=== PATIENT | female | born 1945 | race Caucasian/White ===

== ENCOUNTER 2017-09-01 11:45 | Emergency (ER) | payer OTHER ==
[2017-09-01 12:00] VITALS: BP 103/56
--- NOTE | 2017-09-01 12:04 | UC ---
Lower Extremity/Ankle HPI - HPI Summary HPI Summary: 71 yo WF presents with right ankle pain since last night. She tells me that she was letting her dog out and he pulled on the leash - she twisted her ankle and fell. Did not hit her head. Sustained an inversion right ankle injury. She did RICE therapy last night. Taking ibuprofen for pain with good relief. Still having pain and difficulty ambulating this morning. Denies numbness or tingling. - History of Current Complaint Stated Complaint: ANKLE INJURY Time Seen by Provider: 09/01/17 12:00 Hx Obtained From: Patient Onset/Duration: Sudden Onset Severity Initially: Severe Severity Currently: Moderate Pain Intensity: 4 Pain Scale Used: 0-10 Numeric Aggravating Factor(s): Standing, Ambulation Alleviating Factor(s): Elevation Able to Bear Weight: Yes - Allergies/Home Medications Allergies/Adverse Reactions: Allergies Allergy/AdvReac Type Severity Reaction Status Date / Time No Known Allergies Allergy Verified 09/01/17 12:09 Home Medications: Home Medications Bupropion XL* [Wellbutrin XL *] 450 mg PO DAILY 09/01/17 [History Confirmed ] Citalopram TAB* [CeleXA TAB*] 30 mg PO BEDTIME 09/01/17 [History Confirmed 09/01] Hydrocortisone 2.5% CREAM(NF) 1 applic TOPICAL BID PRN 09/01/17 [History Confirmed 09/01/17] Ketoconazole 2 % CREAM (NF) [Nizoral 2% CREAM (NF)] 1 applic 09/01/17 [History] Losartan TAB* [Cozaar TAB*] 25 mg PO DAILY 09/01/17 [History Confirmed 09/01/17] NIFEdipine [Nifedipine ER] 90 mg PO DAILY 09/01/17 [History Confirmed 09/01/17] Omeprazole CAP* [Prilosec CAP* 20 MG] 20 mg PO DAILY 09/01/17 [History Confirmed 09/01/17] Simvastatin [Zocor] 40 mg PO DAILY 09/01/17 [History Confirmed 09/01/17] PMH/Surg Hx/FS Hx/Imm Hx Endocrine History: Dyslipidemia Cardiovascular History: Hypertension Psychological History: Anxiety, Depression - Family History Known Family History: Positive: Hypertension - Social History Occupation: Retired Lives: With Family Alcohol Use: Occasionally Substance Use Type: None Smoking Status (MU): Former Smoker Type: Cigarettes Review of Systems Constitutional: Negative Skin: Negative Respiratory: Negative Cardiovascular: Negative Gastrointestinal: Negative Neurovascular: Negative Musculoskeletal: Decreased ROM - Right ankle, Other: - Right ankle pain Neurological: Negative Psychological: Negative All Other Systems Reviewed And Are Negative: Yes Physical Exam - Summary Physical Exam Summary: GENERAL: NAD. WDWN. No pain distress. SKIN: No rashes, sores, ulcers, masses, lesions. NECK: Supple. Nontender. No lymphadenopathy. CHEST: CTAB. No r/r/w. No accessory muscle use. Breathing comfortably and in no distress. CV: Pulses intact PT and DP. Brisk cap refill. MSK: Right ankle TTP about lateral malleolus. Moderate edema on lateral malleolus. Increased laxity during inversion. No 5th MT pain. Negative Wake test. NEURO: Alert. Sensations intact and symmetric B/L LEs PSYCH: Age appropriate behavior. Triage Information Reviewed: Yes Procedures - Splinting Location: Right ankle stirrup Hand-Made Type: orthoglass Pre-Proc Neuro Vasc Exam: normal Post-Proc Neuro Vasc Exam: normal Lower Extremity Course/Dx - Course Course Of Treatment: XR: IMPRESSION: NONDISPLACED DISTAL RIGHT FIBULAR FRACTURE. Placed in right ankle splint. Ibuprofen prn. RICE. F/u with Ortho this week - Differential Dx/Diagnosis Provider Diagnoses: Closed NONDISPLACED DISTAL RIGHT FIBULAR FRACTURE. Discharge - Discharge Plan Condition: Stable Disposition: HOME Patient Education Materials: Ankle Fracture (DC) Referrals: Claudia Casanova NP [Primary Care Provider] - Aron Fuentes MD [Medical Doctor] - As Soon As Possible Additional Instructions: If you develop a fever, shortness of breath, chest pain, new or worsening symptoms - please call your PCP or go to the ED. 1) Rest, Ice, and Elevate your ankle as much as possible over the next 24-48 hours 2) Please keep your splint clean, dry, and intact until your appointment with Orthopedics 3) Please call Orthopedics at the number below to schedule a follow up appointment for sometime early this week 4) May take 600-800mg ibuprofen every 6-8hours as needed for pain. Use your walker as needed.
--- NOTE | 2017-09-01 12:53 | RAD ---
INDICATION: Lateral ankle pain after injury COMPARISON: None. TECHNIQUE: 3 views of the right ankle were obtained. FINDINGS: There is a horizontally oriented nondisplaced fracture through the right fibular malleolus remaining visualized bones are intact and appropriately aligned. Medullary screws are seen overlying the first and second distal metatarsals. There is no definite asymmetric widening of the ankle mortise. IMPRESSION: NONDISPLACED DISTAL RIGHT FIBULAR FRACTURE.
== END 2017-09-01 13:00 | disposition home or self-care (01) ==
LOC: UCEAST 11:45
DX: S82.831A Other fracture of upper and lower end of right fibula, initial encounter for closed fracture (principal); X50.1XXA Overexertion from prolonged static or awkward postures, initial encounter; Y93.K9 Activity, other involving animal care; Y92.9 Unspecified place or not applicable; Z87.891 Personal history of nicotine dependence
CPT/HCPCS: 99213; G0463

== ENCOUNTER 2019-06-23 23:12 | Emergency (ER) | payer MEDICARE ==
--- OUTSIDE RECORDS SUMMARY | 2019-06-23 23:29 | XMS REPORT | Continuity of Care Document ---
:1945 External Reference #:[id number] Author Name Claudia Casanova N.P. (transmitted by agent of provider Abi Villalba) Address [address], [place] [address] Care Team Providers Name Role Phone Brigid Velez MD - Internal Care Team Information Sap Developer [phone] Medicine Claudia Casanova NP - Family Care Team Information Sap Developer [phone] Problems Active Problems Provider Date Depressive disorder Claudia Casanova N.Jeremi Onset: 01/02/2011 Irritable bowel syndrome Claudia Casanova N.Jeremi Onset: 01/02/2011 Benign essential hypertension Claudia Casanova N.Jeremi Onset: 03/20/2016 Closed fracture of lateral malleolus Aron Fuentes MD Onset: 09/02/2017 Sprain of ankle Aron Fuentes MD Onset: 09/02/2017 Social History Type Date Description Comments Sex Unknown ETOH Use Currently consumes 7 - 10 per week alcohol Tobacco Use Start: Unknown End: Patient is a former Smoked for a few Unknown smoker years in the s. Smoking Status Reviewed: 05/27/19 Patient is a former Smoked for a few smoker years in the 1960s. Exercise Exercises sporadically Walks her dog daily Type/Frequency Allergies, Adverse Reactions, Alerts Description No Known Drug Allergies Medications Active Medications SIG Qnty Indications Ordering Date Provider Pulmicort Flexhaler 2 puffs twice 1units J20.9 Claudia Casanova, 05/27/2019 daily N.P. 180mcg/Act Aerosol Amoxicillin/Clavulana one tablet by 20tabs J20.9 Claudia Casanova, 05/27/2019 te Potassium mouth twice daily N.P. 875-125mg for 10 days Tablets Benzonatate one by mouth 30caps J20.9 [facility], 05/27/2019 200mg three times daily N.P. Capsules as needed for cough Gabapentin 1 capsule at 21caps M54.5 [facility], 05/27/2019 100mg bedtime for 7 N.P. Capsules days, then 2 capsules at bedtime for 1 week Metaxalone take 1 tablet 3 30tabs M54.5 [facility], 03/17/2019 800mg times a day as N.P. Tablets needed Tramadol HCL 1 tablet three 60tabs M54.5 [facility], 03/13/2019 50mg times daily as N.P. Tablets needed Losartan Potassium 1 by mouth every 90tabs I10 [facility], 09/05/2018 50mg day N.P. Tablets Nifedipine ER 1 by mouth every 30tabs [facility], 03/07/2018 90mg day N.P. Tablets ER 24HR Omeprazole 1 by mouth every 90caps [facility], 12/08/[address] Simvastatin 1 by mouth every 90tabs [facility], 07/26/2014 40mg night at bedtime N.P. Tablets Calcium 1200 1 by mouth every 90units [facility], 12/25/2013 day N.P. [id number] Chewtabs Ibuprofen prn Alana Goodrich, 01/02/2011 200mg M.D., FACP Capsules Wellbutrin XL take 2 tablet by 90tabs Unknown 150mg mouth every day Tablets ER 24HR Citalopram 1 1/2 by mouth 135tabs Unknown Hydrobromide every day 20mg Tablets Mucinex DM 1 by mouth twice Unknown 30-600mg a day Tablets ER 12HR History Medications Cyclobenzaprine HCL 1 by mouth at 30tabs M54.5 [facility], 03/13/2019 - 5mg bedtime as N.P. 03/17/2019 Tablets needed for back pain Immunizations CPT Code Status Date Vaccine Reaction Lot # [id number] Given 03/17/2019 Fluzone High Dose 05204 Given 03/12/2018 Fluzone High Dose 73817 Given 10/26/2017 Zoster (Shingles) Vaccine (HZV), Recombinant, Subunit, Adjuvanted 85971 Given 09/04/2017 Tetanus And Diptheria (Td) No immediate [id number] For Adult Use Preservative reaction...jh Free 79425 Given 08/22/2017 Zoster (Shingles) Vaccine (HZV), Recombinant, Subunit, Adjuvanted 79131 Given 04/09/2017 Influenza Virus Vaccine, Quadrivalent, Split, Preservative Free 32112 Given 04/09/2016 Pneumococcal Conjugate Vaccine 13 Valent For Intramuscular Use Q2039 Given 03/21/2016 Flu Vaccine NOS 27665 Given 03/31/2015 Fluzone High Dose Q2037 Given 04/01/2014 Fluvirin Im 3Yrs And Older 20708 Given 10/26/2013 Pneumonia Vaccine [id number] Q2037 Given 04/02/2013 Fluvirin Im 3Yrs And Older Q2038 Given 03/22/2012 Fluzone Vaccine 49464 Given 01/02/2011 Zoster (Zostavax) [id number] 04726 Given 01/26/2008 Tdap - Tetanus/Diptheria/Acellular Pertussis Vital Signs Date Vital Result Comment 05/27/2019 10:33am Height 61 inches 5'1" Weight 176.00 lb pt refused weight, stated this is her correct lindsey Heart Rate 77 /min BP Systolic Sitting 104 mmHg BP Diastolic Sitting 70 mmHg Body Temperature 97.6 F O2 % BldC Oximetry 93 % BMI (Body Mass Index) 33.3 kg/m2 04/28/2019 2:17pm Weight 176.00 lb BP Systolic Sitting 109 mmHg BP Diastolic Sitting 58 mmHg Respiratory Rate 16 /min Body Temperature 98.2 F Pain Level 5 O2 % BldC Oximetry 96 % Results Description No Information Available Procedures Date Code Description Status 03/31/2018 85931948 Mammogram Completed 12/04/2017 [id number] Bone Mineral Density Test Completed 03/29/2017 [id number] Mammogram Completed 05/02/2016 [id number] Diabetic Retinal Eye Exam Completed 02/23/2016 [id number] Mammogram Completed 03/02/2015 [id number] Diabetic Retinal Eye Exam Completed 09/08/2014 [id number] Mammogram Completed 03/31/2014 [id number] Diabetic Retinal Eye Exam Completed 01/14/2014 [id number] Colonoscopy Completed 11/02/2013 [id number] Bone Mineral Density Test Completed 09/03/2013 [id number] Mammogram Completed 01/08/2011 [id number] Mammogram Completed 03/31/2008 [id number] Diabetic Foot Exam Completed 10/23/2007 [id number] Mammogram Completed 06/17/2003 [id number] Bone Mineral Density Test Completed 06/07/2003 [id number] Colonoscopy Completed Medical Devices Description No Information Available Encounters Type Date Location Provider Dx Diagnosis Office Visit 04/28/2019 [facility] Internal Alana Goodrich, S67.195A [facility], FACP left ring finger, initial encounter Office Visit 03/13/2019 [facility] Internal Claudia Casanova, I10 Essential (primary ) 2:00[facility] hypertension M54.5 Low back pain R05 Cough Z12.31 Encntr screen mammogram for malignant neoplasm of breast Assessments Date Code Description Provider 05/27/2019 J20.9 Acute bronchitis, unspecified Claudia Varn, N.P. 05/27/2019 M54.5 Low back pain Claudia Varn, N.P. 04/28/2019 S67.195A Crushing injury of left ring finger, Alana Goodrich M.D., FACP initial encounter 03/13/2019 I10 Essential (primary) hypertension Claudia Varn, N.P. 03/13/2019 M54.5 Low back pain Claudia Varn, N.P. 03/13/2019 R05 Cough Claudia Varn, N.P. 03/13/2019 Z12.31 Encounter for screening mammogram for Claudia Varn, N.P. malignant neoplasm of breast Plan of Treatment Future Appointment(s):09/07/2019 1:00 pm - Claudia Varn, N.P. at [facility] - Claudia Varn, N.P.J20.9 Acute bronchitis, unspecifiedNew Medication:Pulmicort Flexhaler 180 mcg/Act - 2 puffs twice dailyAmoxicillin/Clavulanate Potassium 875-125 mg - one tablet by mouth twice daily for 10 daysBenzonatate 200 mg - one by mouth three times daily as needed for coughComments:For your bronchitis: I have sent in a prescription for an Augmentin to the pharmacy You are to take 1 tablet every 12 hours until they are gone. Make sure to take this with a little food. I prescribed Benzonatate 200 mg. You may take this every 8 hours as needed for cough.I refilled you prescription for Pulmicort inhaler. Take 2 inhalations, twice daily until you are feeling better.M54.5 Low back painNew Medication:Gabapentin 100 mg - 1 capsule at bedtime for 7 days, then 2 capsules at bedtime for 1 weekComments: For your back pain I want you to start taking Gabapentin. Start with 100 mg at night for a week, boost it to 200 mg for a week, and then boost it to 300 mg. This will be your maintenance dose.This should help your pain and your insomnia. Functional Status Description No Information Available Mental Status Description No Information Available Referrals Refer to Reason for Referral Status Appt Date Pain Clinic Patient with back pain, referred for pain management. Sent Thank you for seeing this patient. [address] [place], [place] [address] [phone]
--- OUTSIDE RECORDS SUMMARY | 2019-06-23 23:29 | XMS REPORT | Continuity of Care Document ---
:1945 External Reference #:[id number] Author Name Alana Goodrich M.D., FACP (transmitted by agent of provider Jacquie Louis) Address [address] [place] [address] Care Team Providers Name Role Phone Brigid Velez MD - Internal Care Team Information Supervisor [employer] Making Machine [phone] Medicine Claudia Casanova NP - Family Care Team Information Supervisor [employer] Making Machine [phone] Problems Active Problems Provider Date Depressive disorder Claudia Casanova N.PBrendan Onset: 01/02/2011 Irritable bowel syndrome Claudia Casanova N.P. Onset: 01/02/2011 Benign essential hypertension Claudia Casanova N.PBrendan Onset: 03/20/2016 Closed fracture of lateral malleolus Aron Fuentes MD Onset: 09/02/2017 Sprain of ankle Aron Fuentes MD Onset: 09/02/2017 Social History Type Date Description Comments Sex Unknown ETOH Use Currently consumes 7 - 10 per week alcohol Tobacco Use Start: Unknown End: Patient is a former Smoked for a few Unknown smoker years in the s. Smoking Status Reviewed: 04/28/19 Patient is a former Smoked for a few smoker years in the 1960s. Exercise Exercises sporadically Walks her dog daily Type/Frequency Allergies, Adverse Reactions, Alerts Description No Known Drug Allergies Medications Active Medications SIG Qnty Indications Ordering Provider Date Metaxalone take 1 tablet 3 30tabs M54.5 Claudia Varn, 03/17/2019 800mg times a day as N.P. Tablets needed Tramadol HCL 1 tablet three 60tabs M54.5 Claudia Varn, 03/13/2019 50mg times daily as N.P. Tablets needed Losartan Potassium 1 by mouth every 90tabs I10 Claudia Casanova, 09/05/2018 50mg day N.P. Tablets Nifedipine ER 1 by mouth every 30tabs Claudia Casanova, 03/07/2018 90mg day N.P. Tablets ER 24HR Omeprazole 1 by mouth every 90caps Claudia Casanova, 12/08/2015 [address] C[address]ules [address] Simvastatin 1 by mouth every 90tabs Claudia Casanova, 07/26/2014 40mg night at bedtime N.P. Tablets Calcium 1200 1 by mouth every 90units Claudia Casanova, 12/25/2013 day N.P. [id number] Chewtabs Ibuprofen prn Alana Joleen, 01/02/2011 200mg M.D., FACP Capsules Wellbutrin XL take 2 tablet by 90tabs Unknown 150mg mouth every day Tablets ER 24HR Citalopram 1 1/2 by mouth 135tabs Unknown Hydrobromide every day 20mg Tablets Mucinex DM 1 by mouth twice Unknown 30-600mg a day Tablets ER 12HR History Medications Cyclobenzaprine HCL 1 by mouth at 30tabs M54.5 Claudia Varn, 03/13/2019 - 5mg bedtime as N.P. 03/17/2019 Tablets needed for back pain Immunizations CPT Code Status Date Vaccine Reaction Lot # [id number] Given 03/17/2019 Fluzone High Dose 84008 Given 03/12/2018 Fluzone High Dose 79254 Given 10/26/2017 Zoster (Shingles) Vaccine (HZV), Recombinant, Subunit, Adjuvanted 89874 Given 09/04/2017 Tetanus And Diptheria (Td) No immediate [id number] For Adult Use Preservative reaction...jh Free 75452 Given 08/22/2017 Zoster (Shingles) Vaccine (HZV), Recombinant, Subunit, Adjuvanted 05618 Given 04/09/2017 Influenza Virus Vaccine, Quadrivalent, Split, Preservative Free 27273 Given 04/09/2016 Pneumococcal Conjugate Vaccine 13 Valent For Intramuscular Use Q2039 Given 03/21/2016 Flu Vaccine NOS 46622 Given 03/31/2015 Fluzone High Dose Q2037 Given 04/01/2014 Fluvirin Im 3Yrs And Older 19785 Given 10/26/2013 Pneumonia Vaccine [id number] Q2037 Given 04/02/2013 Fluvirin Im 3Yrs And Older Q2038 Given 03/22/2012 Fluzone Vaccine 05893 Given 01/02/2011 Zoster (Zostavax) [id number] 36070 Given 01/26/2008 Tdap - Tetanus/Diptheria/Acellular Pertussis Vital Signs Date Vital Result Comment 04/28/2019 2:17pm Weight 176.00 lb BP Systolic Sitting 109 mmHg BP Diastolic Sitting 58 mmHg Respiratory Rate 16 /min Body Temperature 98.2 F Pain Level 5 O2 % BldC Oximetry 96 % 03/13/2019 2:14pm Height 61 inches 5'1" Weight 176.00 lb Heart Rate 68 /min BP Systolic Sitting 115 mmHg BP Diastolic Sitting 70 mmHg BMI (Body Mass Index) 33.3 kg/m2 Results Description No Information Available Procedures Date Code Description Status 03/31/2018 [id number] Mammogram Completed 12/04/2017 [id number] Bone Mineral Density Test Completed 03/29/2017 [id number] Mammogram Completed 05/02/2016 [id number] Diabetic Retinal Eye Exam Completed 02/23/2016 [id number] Mammogram Completed 03/02/2015 [id number] Diabetic Retinal Eye Exam Completed 09/08/2014 [id number] Mammogram Completed 03/31/2014 [id number] Diabetic Retinal Eye Exam Completed 01/14/2014 [id number] Colonoscopy Completed 11/02/2013 [id number] Bone Mineral Density Test Completed 09/03/2013 [id number] Mammogram Completed 01/08/2011 [id number] Mammogram Completed 03/31/2008 [id number] Diabetic Foot Exam Completed 10/23/2007 [id number] Mammogram Completed 06/17/2003 [id number] Bone Mineral Density Test Completed 06/07/2003 [id number] Colonoscopy Completed Medical Devices Description No Information Available Encounters Type Date Location Provider Dx Diagnosis Office Visit 03/13/2019 [facility] Claudia Casanova, I10 Essential (primary ) 2:00p Medicine - [facility] N.P. hypertension M54.5 Low back pain R05 Cough Z12.31 Encntr screen mammogram for malignant neoplasm of breast Assessments Date Code Description Provider 04/28/2019 S67.195S Crushing injury of left ring finger, Alana Goodrich M.D., FACP sequela 03/13/2019 I10 Essential (primary) hypertension Claudia Casanova, N.P. 03/13/2019 M54.5 Low back pain Claudia Casanova, N.P. 03/13/2019 R05 Cough Claudia Casanova, N.P. 03/13/2019 Z12.31 Encounter for screening mammogram for Claudia Casanova N.Hawa. malignant neoplasm of breast Plan of Treatment Future Appointment(s):09/07/2019 1:00 pm - [facility] N.Hawa. [facility] Alana Goodrich M.D., FACPS67.195S Crushing injury of left ring finger, sequelaComments:FINGER INJURY:It is possible that you may have fractured your finger in the dog park gate but as we dicussed today, x- raying it will not change our management.Use the splint only when you are active.Call back if you are not improving. Functional Status Description No Information Available Mental Status Description No Information Available Referrals Refer to Reason for Referral Status Appt Date Pain Clinic Patient with back pain, referred for pain management. Sent Thank you for seeing this patient. [address] [place], [place] [address] [phone]
--- NOTE | 2019-06-24 00:10 | ED ---
Lower Extremity - HPI Summary HPI Summary: 73 year old female presents with left ankle injury after fall. She was walking the dog when she slipped on black ice. She inverted her ankle. She states that she sprained the ankle before. She admits to chronic numbness in her left great toe that is unchanged. She states that she did scrape her knee. Admits to minimal knee pain. She has swelling noted to the ankle. She denies any head injury. No loss consciousness. No other injury. - History of Current Complaint Chief Complaint: EDFall Stated Complaint: FALL PER PT Time Seen by Provider: 06/23/19 23:54 Pain Intensity: 7 - Allergies/Home Medications Allergies/Adverse Reactions: Allergies Allergy/AdvReac Type Severity Reaction Status Date / Time No Known Allergies Allergy Verified 05/01/19 13:23 Home Medications: Home Medications Gabapentin 300 mg PO QPM 06/23/19 [History Confirmed 06/24/19] Omeprazole 20 mg PO EVERY OTHER DAY 06/23/19 [History Confirmed 06/24/19] PMH/Surg Hx/FS Hx/Imm Hx Endocrine/Hematology History: Denies: Hx Anticoagulant Therapy Cardiovascular History: Denies: Hx Pacemaker/ICD Respiratory History: Reports: Hx Chronic Obstructive Pulmonary Disease (COPD) Sensory History: Denies: Hx Hearing Aid Psychiatric History: Denies: Hx Panic Disorder - Cancer History Hx Chemotherapy: No Hx Radiation Therapy: No - Surgical History Surgery Procedure, Year, and Place: sigmoidectomy, hysterectomy, T&A, bunions, Abdominal tumor removed Infectious Disease History: No Infectious Disease History: Denies: Traveled Outside the [place] in Last 30 Days - Family History Known Family History: Positive: Hypertension - Social History Alcohol Use: Weekly Alcohol Amount: 7-15 DRINKS Substance Use Type: Reports: None Smoking Status (MU): Former Smoker Type: Cigarettes Review of Systems Negative: Fever Negative: Chest Pain Negative: Shortness Of Breath Positive: Myalgia - left ankle pain All Other Systems Reviewed And Are Negative: Yes Physical Exam Triage Information Reviewed: Yes Vital Signs On Initial Exam: Initial Vitals Temp Pulse Resp BP Pulse Ox 98.6 F 80 18 116/68 95 06/23/19 23:13 06/23/19 23:13 06/23/19 23:13 06/23/19 23:13 06/23/19 23:13 Vital Signs Reviewed: Yes Appearance: Positive: Well-Appearing Skin: Positive: Warm, Dry Head/Face: Positive: Normal Head/Face Inspection Eyes: Positive: Normal, Conjunctiva Clear ENT: Positive: Pharynx normal Respiratory/Lung Sounds: Positive: Clear to Auscultation, Breath Sounds Present Cardiovascular: Positive: Normal, RRR Musculoskeletal: Positive: Limited @ - left ankle, Edema Left - ankle, Other - abrasion to left knee, good pulses, nontender left foot, sensation grossly intact Neurological: Positive: Normal Psychiatric: Positive: Normal Procedures - Sedation Patient Received Moderate/Deep Sedation with Procedure: No - Splinting ankle Location: left ankle Hand-Made Type: orthoglass Splint: sugar-tong Pre-Proc Neuro Vasc Exam: normal Post-Proc Neuro Vasc Exam: normal Splint Applied by Provider: Janey Elliott - Vital Signs Vital Signs Temp Pulse Resp BP Pulse Ox 06/23/19 23:13 98.6 F 80 18 116/68 95 - Laboratory Lab Statement: Any lab studies that have been ordered have been reviewed, and results considered in the medical decision making process. - Radiology ankle Radiology Interpretation Completed By: ED Physician Summary of Radiographic Findings: fibula fracture Lower Extremity Course/Dx - Course Course Of Treatment: 73 year old female presents with left ankle injury after fall. She slipped on black ice. She inverted her ankle. She states that she sprained the ankle before. She admits to chronic numbness in her left great toe that is unchanged. She states that she did scrape her knee. Admits to minimal knee pain. She denies any head injury. No loss consciousness. No other injury. On exam has edema noted to left ankle. Neurovascular intact. X- ray shows distal fibula fracture. placed in sugar tong splint. will have follow up with ortho. patient understand and agrees with plan. - Diagnoses Differential Diagnosis/HQI/PQRI: Positive: Contusion, Fracture (Closed), Sprain Provider Diagnoses: Fracture of distal fibula Discharge ED - Sign-Out/Discharge Documenting (check all that apply): Patient Departure - Discharge Plan Condition: Good Disposition: HOME Prescriptions: traMADol TAB* [Ultram*] 50 mg PO Q8H PRN #15 tab MDD 3 PRN Reason: Pain - Severe Patient Education Materials: Ankle Fracture (ED) Referrals: Claudia Casanova NP [Primary Care Provider] - Castillo Cuadra MD [Medical Doctor] - Additional Instructions: Use walker and stay nonweight bearing Keep splint on area and keep dry Call ortho office tomorrow to set up appointment for follow up Use tyenlol for pain every 6 hours and use tramadol for breakthrough pain every 8 hours Ice, elevate Return to ED if develop any new or worsening symptoms - Billing Disposition and Condition Condition: GOOD Disposition: Home
[2019-06-24] MEDS ORDERED: HYDROcodone/ACETAMIN 5-325 MG* 1 TAB PO ONE (01:01)
[2019-06-24] MEDS ORDERED: traMADol TAB* 50 MG PO ONE (01:06)
[2019-06-24 02:12] VITALS: BP 138/78
== END 2019-06-24 02:11 | disposition home or self-care (01) ==
LOC: ED 23:12
DX: S82.402A Unspecified fracture of shaft of left fibula, initial encounter for closed fracture (principal); W00.0XXA Fall on same level due to ice and snow, initial encounter; Y92.9 Unspecified place or not applicable; J44.9 Chronic obstructive pulmonary disease, unspecified; Z87.891 Personal history of nicotine dependence; Z79.899 Other long term (current) drug therapy
CPT/HCPCS: 99283; A9270-GY